=== PATIENT | male | born 1995 | race Caucasian/White ===

== ENCOUNTER 2018-02-07 22:37 | Emergency (ER) | payer OTHER ==
[2018-02-07 22:49] VITALS: BP 141/78
[2018-02-07] MEDS ORDERED: AMOX/CLAV 875 MG/125 MG TABLET PO STA (22:56)
[2018-02-07] MEDS ORDERED: HYDROcod/ACET 5/325 Prepack 4 PO STA (22:56)
--- NOTE | 2018-02-07 22:59 | ED Physician Documentation ---
PD HPI UPPER EXT INJURY - Stated complaint Stated Complaint: R/L CAT BITES - Chief complaint Chief Complaint: Wound - History obtained from History obtained from: Patient - History of Present Illness Location: Other (Punctures/scratches on both hands, breaking up cat fight about 1 hr [employer]. Pain is significant. Tetanus is UTD- [facility].) Review of Systems Constitutional: reports: Reviewed and negative Cardiac: reports: Reviewed and negative Respiratory: reports: Reviewed and negative PD PAST MEDICAL HISTORY - Present Medications Home Medications: Ambulatory Orders Medication Instructions Recorded Confirmed Amox/Clav 875/125 [Augmentin] 1 each PO Q12H #14 tablet 02/07/18 HYDROcod/ACETAM 5/325 [Bear 5/325] 1 - 2 ea PO Q6H PRN #7 tablet 02/07/18 - Allergies Allergies/Adverse Reactions: Allergies Allergy/AdvReac Type Severity Reaction Status Date / Time No Known Drug Allergies Allergy Verified 02/07/18 22:49 PD ED PE NORMAL - Vitals Vital signs reviewed: Yes - General General: Alert and oriented X 3, No acute distress - Extremities Extremities: Other (Scratches R thenar and puctures L 2nd finger. Good ROM all and no sign of infection yet.) - Neuro Neuro: Alert and oriented X 3, Normal speech Results - Vitals Vitals: Vital Signs - 24 hr 02/07/18 22:45 Temperature 36.3 C L Heart Rate 70 Respiratory 17 Rate Blood Pressure 141/78 H O2 Saturation 99 Oxygen O2 Source Room air PD MEDICAL DECISION MAKING - Sepsis Event Vital Signs: Vital Signs - 24 hr 02/07/18 22:45 Temperature 36.3 C L Heart Rate 70 Respiratory 17 Rate Blood Pressure 141/78 H O2 Saturation 99 Oxygen O2 Source Room air Departure - Departure Disposition: 01 Home, Self Care Clinical Impression: Animal bite with open wound Condition: Good Record reviewed to determine appropriate education?: Yes Instructions: ED Bite Animal General Prescriptions: Amox/Clav 875/125 [Augmentin] 1 each PO Q12H #14 tablet HYDROcod/ACETAM 5/325 [Bear 5/325] 1 - 2 ea PO Q6H PRN #7 tablet PRN Reason: Pain Comments: Call your doctor to arrange a follow-up appointment, make the next available appointment. In the interim, return anytime if worse or if new symptoms develop. Your blood pressure was elevated today on check into the emergency department. This does not mean that you have hypertension, it is a common phenomenon to come to the emergency department and have elevated blood pressure. I recommend that you see your primary care physician within the week to have it rechecked when you are feeling better. Forms: Activity restrictions Discharge Date/Time: 02/07/18 23:10
== END 2018-02-07 23:10 | disposition home or self-care (01) ==
LOC: ED 22:37
DX: S61.251A Open bite of left index finger without damage to nail, initial encounter (principal); S60.511A Abrasion of right hand, initial encounter; R03.0 Elevated blood-pressure reading, without diagnosis of hypertension; W55.01XA Bitten by cat, initial encounter; W55.03XA Scratched by cat, initial encounter; Y93.89 Activity, other specified
CPT/HCPCS: 99281; 99283; A9270

== ENCOUNTER 2018-08-10 03:51 | Emergency (ER) | payer OTHER ==
--- NOTE | 2018-08-10 04:39 | ED Physician Documentation ---
PD HPI NVD - Stated complaint Stated Complaint: NV - Chief complaint Chief Complaint: Abd Pain - History obtained from History obtained from: Patient - History of Present Illness Timing - onset: Yesterday Timing - duration: Days (1) Timing - details: Abrupt onset, Still present Associated symptoms: Abdominal pain (mid to left abd cramping pains, severe at times.). No: Fever, Hematemesis, Melena, Near syncope / syncope Contributing factors: No: Sick contact, Bad food, Travel, Recent antibiotics Improved by: Laying still. No: Vomiting, BM Worsened by: Eating, Moving Similar symptoms before: Has not had sx before Recently seen: Not recently seen Review of Systems Constitutional: reports: Chills, Myalgias. denies: Fever Nose: reports: Congestion Throat: denies: Sore throat Respiratory: denies: Cough GI: reports: Abdominal Pain, Nausea, Vomiting, Diarrhea. denies: Abdominal Swelling, Constipation, Hematemesis, Bloody / black stool : denies: Dysuria, Frequency Skin: denies: Rash, Lesions Musculoskeletal: denies: Neck pain Neurologic: reports: Generalized weakness, Headache. denies: Near syncope, Syncope, Altered mental status PD PAST MEDICAL HISTORY - Past Medical History Past Medical History: Yes Cardiovascular: None Respiratory: None Neuro: None Endocrine/Autoimmune: None GI: None Psych: Depression, Anxiety - Past Surgical History Past Surgical History: No - Present Medications Home Medications: Ambulatory Orders Medication Instructions Recorded Confirmed Diphenoxylate/Atropine [Lomotil] 1 each PO QID PRN #12 tablet 08/10/18 Naproxen 375 mg PO BID #20 tablet 08/10/18 Ondansetron Odt [Zofran] 4 mg TL Q6H PRN #10 tablet 08/10/18 Oxycodone HCl/Acetaminophen 1 - 2 each PO Q6H PRN #14 tablet 08/10/18 [Percocet 5-325 mg Tablet] Sertraline [Zoloft] 100 mg PO DAILY 08/10/18 08/10/18 buPROPion [Wellbutrin Sr] 150 mg PO DAILY 08/10/18 08/10/18 - Allergies Allergies/Adverse Reactions: Allergies Allergy/AdvReac Type Severity Reaction Status Date / Time No Known Drug Allergies Allergy Verified 08/10/18 04:00 - Living Situation Living Situation: reports: With spouse/s.o. Living Arrangement: reports: At home - Social History Does the pt smoke?: No Smoking Status: Never smoker Does the pt drink ETOH?: Yes - Family History Family history: reports: Non contributory - Immunizations Immunizations are current?: Yes - POLST Patient has POLST: No PD ED PE NORMAL - Vitals Vital signs reviewed: Yes - General General: Alert and oriented X 3, Well developed/nourished - HEENT HEENT: Ears normal, Moist mucous membranes, Pharynx benign - Neck Neck: Supple, no meningeal sign, No adenopathy - Cardiac Cardiac: RRR, No murmur - Respiratory Respiratory: Clear bilaterally - Abdomen Abdomen: Soft, Non distended, No organomegaly, Other (Tender mid to upper left abd, without some local guarding but no percussion nor rebound tenderness. ). No: Normal bowel sounds (increased, hyperactive on mid to left) - Male Male : Deferred - Rectal Rectal: Deferred - Back Back: No CVA TTP - Derm Derm: Normal color, Warm and dry - Extremities Extremities: No deformity, No tenderness to palpate, Normal ROM s pain, No edema - Neuro Neuro: Alert and oriented X 3, No motor deficit, Normal speech Eye Opening: Spontaneous Motor: Obeys Commands Verbal: Oriented GCS Score: 15 Results - Vitals Vitals: Vital Signs - 24 hr 08/10/18 08/10/18 08/10/18 03:58 04:03 05:11 Temperature 35.7 C L 36.3 C L Heart Rate 60 63 60 Respiratory 12 18 Rate Blood Pressure 134/57 H 123/67 119/63 O2 Saturation 98 98 98 08/10/18 06:19 Temperature Heart Rate 59 L Respiratory 16 Rate Blood Pressure 111/52 L O2 Saturation 96 Oxygen O2 Source Room air - Labs Labs: Laboratory Tests 08/10/18 08/10/18 08/10/18 04:52 04:52 05:03 WBC 6.8 RBC 5.52 Hgb 15.7 Hct 46.9 MCV 85.0 MCH 28.4 MCHC 33.4 RDW 13.4 Plt Count 263 MPV 8.8 Neut # (Auto) 4.2 Lymph # (Auto) 1.7 [place] # (Auto) 0.6 Eos # (Auto) 0.1 Baso # (Auto) 0.1 Absolute Nucleated RBC 0.01 Nucleated RBC % 0.2 Sodium 138 Potassium 3.9 Chloride 105 Carbon Dioxide 26 Anion Gap 7.0 BUN 13 Creatinine 0.9 Estimated GFR (MDRD) 106 Glucose 109 H Calcium 9.6 Total Bilirubin 1.0 AST 31 ALT 49 Alkaline Phosphatase 93 Total Protein 7.7 Albumin 4.3 Globulin 3.4 Albumin/Globulin Ratio 1.3 Lipase 33 Influenza A (Rapid) Negative Influenza B (Rapid) Negative - Rads (name of study) abd CT Radiology: Prelim report reviewed (no acute focal infection), EMP read contemporaneously, See rad report PD MEDICAL DECISION MAKING - ED course Complexity details: considered differential (Initially thinking a viral gastroenteritis with his symptoms. He did have significant left-sided abdominal crampy pain. He is given IV fluids antiemetics and some Toradol. He still had left-sided tenderness with some local guarding so I did opt her CT scan to ensure there is no acute focus of infection. The CT scan appeared normal. He was given IV more fluids along with some pain medicine and did feel improved enough. He is able to eat and drink little bits of fluid. At this point he seems stable for discharge without any acute peritoneal process.), d/w patient Departure - Departure Disposition: 01 Home, Self Care Clinical Impression: Nausea vomiting and diarrhea Abdominal pain Qualifiers: Abdominal location: left upper quadrant Qualified Code(s): R10.12 - Left upper quadrant pain Condition: Stable Record reviewed to determine appropriate education?: Yes Instructions: ED Diet Vomiting Diarrhea Follow-Up: [facility] [Provider Group] Prescriptions: Diphenoxylate/Atropine [Lomotil] 1 each PO QID PRN #12 tablet PRN Reason: Diarrhea Naproxen 375 mg PO BID #20 tablet Ondansetron Odt [Zofran] 4 mg TL Q6H PRN #10 tablet PRN Reason: Nausea / Vomiting Oxycodone HCl/Acetaminophen [Percocet 5-325 mg Tablet] 1 - 2 each PO Q6H PRN #14 tablet PRN Reason: pain Comments: Presume this is a viral gastroenteritis with the vomiting and diarrhea. This can cause intestinal inflammation and cramping and pains. The CT scan did not show any acute focus of infection such as diverticulitis or colitis. Your major organs including appendix and gallbladder appeared normal as well. I presume this will be a day to 2 type illness. Drink lots of fluids. [place]ade food as tolerated. Naproxen twice daily for inflammation and pain. Lomotil if needed for diarrhea. Ondansetron for nausea as needed. Add pain medicine if needed for the cramps. Recheck if not improved over the next 1-2 days at most. Return sooner if worsening despite medicines. Forms: Activity restrictions
[2018-08-10] MEDS ORDERED: DIPHENOX/ATROPINE 2.5/0.025 MG TABLET PO STA (04:48)
[2018-08-10] MEDS ORDERED: KETOROLAC 30 MG/ML VIAL IVP STA (04:48)
[2018-08-10] MEDS ORDERED: SODIUM CHLORIDE 0.9% 1,000 ML IV ONE ×3 (04:48→07:06)
[2018-08-10] MEDS ORDERED: ONDANSETRON 4 MG/2 ML VIAL IVP STA (04:48)
[2018-08-10 05:23] LABS: ALBUMIN 4.3 g/dL (3.2-5.5); ALBUMIN/GLOBULIN RATIO 1.3 (1.0-2.2); CALCIUM 9.6 mg/dL (8.5-10.3); CREATININE 0.9 mg/dL (0.6-1.2); TOTAL PROTEIN 7.7 g/dL (6.7-8.2)
[2018-08-10 05:29] LABS: BASOPHILS # (AUTO) 0.1 10^3/uL (0.0-0.1); BASOPHILS % (AUTO) 0.8 %; EOSINOPHILS # (AUTO) 0.1 10^3/uL (0.0-0.7); EOSINOPHILS % (AUTO) 1.3 %; HGB - HEMOGLOBIN 15.7 g/dL (14.0-18.0); LYMPHOCYTES # (AUTO) 1.7 10^3/uL (1.5-3.5); LYMPHOCYTES % (AUTO) 25.8 %; MEAN CORPUSCULAR HEMOGLOBIN 28.4 pg (27.0-31.0); MEAN CORPUSCULAR HGB CONC 33.4 g/dL (32.0-36.0); MEAN PLATELET VOLUME 8.8 fL (7.4-11.4); MONOCYTES # (AUTO) 0.6 10^3/uL (0.0-1.0); MONOCYTES % (AUTO) 9.5 %; NEUTROPHILS # (AUTO) 4.2 10^3/uL (1.5-6.6); NEUTROPHILS % (AUTO) 62.6 %; PLT - PLATELET COUNT 263 10^3/uL (130-450); RED BLOOD COUNT 5.52 10^6/uL (4.70-6.10); RED CELL DISTRIBUTION WIDTH 13.4 % (12.0-15.0); WHITE BLOOD COUNT 6.8 x10^3/uL (4.8-10.8)
[2018-08-10] MEDS ORDERED: MORPHINE 10 MG/ML VIAL IVP STA (06:01)
[2018-08-10] MEDS ORDERED: IOVERSOL 320 100 ML VIAL IVP ONE ×2 (06:33→06:55)
[2018-08-10] MEDS ORDERED: HYDROmorphone 1 MG/ML CARPUJECT IVP STA (07:06)
--- NOTE | 2018-08-10 07:16 | CT Report ---
Reason: left abd pain and vomiting Procedure Date: 08/10/2018 Accession Number: [id number] / [id number] Procedure: CT - Abdomen/Pelvis W/ CPT Code: FULL RESULT: EXAM: CT ABDOMEN AND PELVIS EXAM DATE: 08/10/2018 06:57 AM. CLINICAL HISTORY: Left abdominal pain and vomiting. COMPARISONS: None. TECHNIQUE: Routine helical CT imaging was performed through the abdomen and pelvis. IV contrast: 80ml [id number]. Enteric contrast: No. Reconstructions: Coronal and sagittal. In accordance with CT protocol optimization, one or more of the following dose reduction techniques were utilized for this exam: automated exposure control, adjustment of mA and/or KV based on patient size, or use of iterative reconstructive technique. FINDINGS: Lung Bases: Bibasilar scar/atelectasis. Included portions of the heart are unremarkable. Liver: Normal. No masses. Gallbladder/Bile Ducts: Unremarkable. Spleen: Normal. Pancreas: Normal. Adrenal Glands: Normal. Kidneys: Normal. No masses or hydronephrosis. Peritoneal Cavity/Bowel: Stomach is nondistended. No small bowel obstruction or small bowel wall thickening. Small volume of stool in the colon. Gaseous distention of the distal colon. No diverticulitis. The appendix is well visualized and normal. Pelvic Organs: Normal. The bladder and visualized pelvic organs are within normal limits. Vasculature: No aneurysms or other significant abnormality. Bones: No significant abnormality. Other: None. IMPRESSION: 1. Normal appendix. 2. No bowel obstruction. No diverticulitis. No bowel wall thickening. 3. No nephrolithiasis. No hydronephrosis. 4. Normal CT appearance of the gallbladder and pancreas. RADIA
[2018-08-10 08:05] VITALS: BP 125/53
== END 2018-08-10 08:04 | disposition home or self-care (01) ==
LOC: ED 03:51
DX: R11.2 Nausea with vomiting, unspecified (principal); R19.7 Diarrhea, unspecified; R10.12 Left upper quadrant pain
CPT/HCPCS: 36415; 74177; 80053; 83690; 85025; 87275; 87276; 96361; 96374; 96375; 99284; A9270; J1170; Q9967

== ENCOUNTER 2020-11-20 10:58 | Emergency (ER) | payer MEDICAID ==
[2020-11-20 11:17] VITALS: BP 123/60
[2020-11-20] MEDS ORDERED: CHERRY SYRUP 10 ML UDC PO ONE (12:06)
[2020-11-20] MEDS ORDERED: DEXAMETHASONE 10 MG/ML VIAL PO STA (12:06)
[2020-11-20 12:38] LABS: RAPID STREP SCREEN Negative (Negative)
--- NOTE | 2020-11-20 13:12 | ED Physician Documentation ---
PD HPI HEENT - Stated complaint Stated Complaint: THROAT PX/COUGH - Chief complaint Chief Complaint: Resp - History obtained from History obtained from: Patient - History of Present Illness Timing - onset: How many days ago (3) Timing - duration: Days (3) Timing - details: Gradual onset, Still present Location: Throat Improves: Medication Worsens: Swalllowing Associated symptoms: Congestion, Cough. No: Fever Similar symptoms before: Has not had sx before Recently seen: Not recently seen - Additional information Additional information: 25-year-old male who went to visit his family in [place] after the of his grandmother was exposed to his father who had bronchitis and he has developed a bit of a sore throat and a bit of a cough. He is not having shortness of breath and is not having fever. He states that his father was immunized for Covid and he does not know whether his father was tested for Covid or not. Review of Systems Constitutional: denies: Fever Eyes: denies: Decreased vision Ears: denies: Ear pain Nose: reports: Congestion Throat: reports: Sore throat Cardiac: denies: Chest pain / pressure, Palpitations Respiratory: reports: Cough. denies: Dyspnea, Wheezing GI: denies: Nausea, Vomiting, Constipation, Diarrhea PD PAST MEDICAL HISTORY - Past Medical History Cardiovascular: None Respiratory: None Neuro: None Endocrine/Autoimmune: None GI: None Psych: Depression, Anxiety - Past Surgical History Past Surgical History: No - Present Medications Home Medications: Ambulatory Orders Medication Instructions Recorded Confirmed Oxycodone HCl/Acetaminophen 1 - 2 each PO Q6H PRN #14 tablet 08/10/18 [Percocet 5-325 mg Tablet] Sertraline [Zoloft] 100 mg PO DAILY 08/10/18 08/10/18 - Allergies Allergies/Adverse Reactions: Allergies Allergy/AdvReac Type Severity Reaction Status Date / Time No Known Drug Allergies Allergy Verified 11/20/20 11:16 - Social History Does the pt smoke?: No Smoking Status: Never smoker Does the pt drink ETOH?: Yes - Immunizations Immunizations are current?: Yes - POLST Patient has POLST: No PD ED PE NORMAL - Vitals Vital signs reviewed: Yes (normal) - General General: Alert and oriented X 3, No acute distress, Well developed/nourished - HEENT HEENT: Atraumatic, PERRL, EOMI, Ears normal, Moist mucous membranes, Other (There is generalized erythema to the posterior pharynx including the tonsils which are slightly swollen without crypts and without exudate.) - Neck Neck: Supple, no meningeal sign, No bony TTP - Cardiac Cardiac: RRR, No murmur - Respiratory Respiratory: No respiratory distress, Clear bilaterally - Abdomen Abdomen: Soft, Non tender - Back Back: No CVA TTP, No spinal TTP - Derm Derm: Normal color, Warm and dry, No rash - Extremities Extremities: No deformity, No edema - Neuro Neuro: Alert and oriented X 3, client solutions director 2-12 intact, No motor deficit, No sensory deficit, Normal speech Eye Opening: Spontaneous Motor: Obeys Commands Verbal: Oriented GCS Score: 15 - Psych Psych: Normal mood, Normal affect Results - Vitals Vitals: Vital Signs - 24 hr 11/20/20 11:10 Temperature 36.1 C L Heart Rate 73 Respiratory 18 Rate Blood Pressure 123/60 O2 Saturation 99 Oxygen O2 Source Room air - Labs Labs: Laboratory Tests 11/20/20 12:19 Group A Strep Rapid Negative PD MEDICAL DECISION MAKING - ED course Complexity details: reviewed results, re-evaluated patient, considered differential, d/w patient ED course: 25-year-old male with a sore throat and erythema to the posterior pharynx has been exposed to another person with bronchitis and that patient actually has been immunized and my thought is that this less likely to be Covid. The patient does a swab for Covid as a send out and is administered dexamethasone 10 mg orally for his pharyngitis. He did not have signs of otitis and he had no crypts or exudate on his tonsils and his rapid strep was negative. He has been diagnosis viral pharyngitis and given symptomatic treatment. Departure - Departure Disposition: 01 Home, Self Care Clinical Impression: Viral pharyngitis Condition: Stable Instructions: ED Pharyngitis Viral Follow-Up: Alka Khan ARNP [Primary Care Provider] - Discharge Date/Time: 11/20/20 13:17
== END 2020-11-20 13:17 | disposition home or self-care (01) ==
LOC: ED 10:58
DX: J02.9 Acute pharyngitis, unspecified (principal); Z20.822 Contact with and (suspected) exposure to COVID-19
CPT/HCPCS: 87070; 87430; 87635; 99283; 99284; A9270